=== PATIENT | female | born 1985 | race Caucasian/White ===

== ENCOUNTER 2019-08-24 09:36 | Outpatient (CLI) | payer OTHER, SELFPAY ==
[2019-08-24 10:25] LABS: Hematocrit 33.7 % (37.0-47.0); Hemoglobin 10.7 g/dL (12.0-15.0); Mean Corpuscular HGB Conc 31.8 g/dl (32-36); Mean Corpuscular Volume 88.2 fl (80-100); Mean Platelet Volume 9.2 fl (7.4-10.4); Platelet Count Result 289 k/mm3 (150-375); Red Blood Count 3.82 M/mm3 (4.2-5.4); Red Cell Distribution Width 15.5 % (11.5-14.5)
[2019-08-25 07:43] LABS: Rapid Plasma Reagin Non-Reactive (NonReactive)
== END 2019-08-24 09:37 | disposition home or self-care (01) ==
PROVIDERS: Visit Provider Obstetrics & Gynecology Gynecology
DX: Z01.818 Encounter for other preprocedural examination (principal)
CPT/HCPCS: 36415; 85027; 86592; 86850; 86900; 86901

== ENCOUNTER 2019-08-25 05:28 | Inpatient (IN) | payer OTHER, SELFPAY ==
--- NOTE | 2019-08-02 12:47 | PC.NURSE ---
VERIFIED WITH OR SCHEDULE AND PATIENT--C/S ON 08/25/19 AT 0730 PATIENT GIVEN REQUISITION FOR LAB DRAW ON 08/24/19
[2019-08-25] VITALS (50 sets, daily range): BP systolic 76–139; BP diastolic 37–86; PULSE 57–177; RESP 12–21; TEMP 36.1–37.3; O2SAT 96–100; BMI 43.9
[2019-08-25] MEDS: LACTATED RINGERS 1,000 ML 999 ML IV CONT (06:21)
[2019-08-25] MEDS: ceFAZolin 2 GM/D5W 50 ML 2 GM/50 ML BAG IVPB (06:22)
--- NOTE | 2019-08-25 06:33 | LDADM ---
This patient, Cherry Adair, was admitted to Labor/Delivery/Recovery 120 on 08/25/19 at 05:28. Plans for labor, pain management and were discussed with patient. Patient/family oriented to hospital policies and general routines including ID bracelet, bed and alarms, visiting hours, pain management, procedures, bathroom and other care routines, personal items, smoking policy, room service/diet and guest tray routines, security routines, and visiting hours. Patient/Family are encouraged to report perceived risks to care and to ask questions if they do not understand what they are told or what they should do. See OBIX for further documentation.
--- NOTE | 2019-08-25 06:54 | WPDANESEPPF ---
Anes - Initial Pre Proc Eval Procedure: Operation Date: 08/25/19 07:30 Proposed Procedures p Repeat Section - Julieth Leal MD Date/Time: 08/25/19 06:54 Surgeon: Julieth Leal MD Pre Op Diagnosis: PREIN Patient Data Age: 34 Gender: F Height: 5 ft Weight: 102 kg Allergies Allergy/AdvReac Type Severity Reaction Status Date / Time No Known Allergies Allergy Verified 08/02/19 12:26 Home Medications Medication Instructions Recorded Confirmed Type PNV cmb#95-ferrous fumarate-FA 1 tablet PO DAILY 05/30/19 08/25/19 History [] aspirin [Adult Low Dose Aspirin] 81 mg PO DAILY 05/30/19 08/25/19 History afhajdurnw-aluataqesokgj-svrm 1 cap PO Q4-6H PRN 05/30/19 08/25/19 History [Fioricet] cetirizine [Zyrtec] 10 mg PO DAILY 05/30/19 08/25/19 History cholecalciferol (vitamin D3) 2,000 unit PO DAILY 05/30/19 08/25/19 History [Vitamin D3] nifedipine 30 mg PO DAILY 05/30/19 08/25/19 History omeprazole 20 mg PO BID 05/30/19 08/25/19 History Patient hx anesthesia problems: post op nausea/vomiting Family hx anesthesia problems: none PMFSH Past Medical History Medical History GERD (gastroesophageal reflux disease) Hx of migraines Hypertension Family History Family History Grandparent Family history of cardiovascular disease Diabetes mellitus Hypertension Cerebrovascular accident Cancer Father Family history of gastrointestinal disorder Grandparent Cerebrovascular accident Mother Family history of cardiovascular disease Social History Social History Smoking status: Never smoker Alcohol intake: current Substance use: never Gender identity (if verbalized by the patient): Female Spiritual care concerns: No Anes - Eval Final PreProcedure Day of Procedure 08/25/19 06:54 Patient weight: morbidly obese Heart: regular rate and rhythm Lungs: clear to auscultation Airway: Mallampati scale class II Neurological: alert and oriented Last oral intake: >/= 8 hours ASA classification: III Emergent: no Anesthetic plan: proceed Anesthesia type and monitoring: regional spinal and standard monitoring Informed Consent: The patient's anesthetic plan and its attendant risks and benefits were discussed with the patient/family/POA. Questions were solicited and answers provided to the satisfaction of the patient/family/POA.
--- NOTE | 2019-08-25 07:24 | PM.IMHP ---
H&P: HPI History of Present Illness Chief complaint: PREIN Narrative: Cherry Adair is a 34 year old female at 39 wks here for repeat LTCS. Patient complicated by CHTN that has been stable throughout . labs: O+; RPR-; HBSAg-; HIV-; GBS-. [facility] Past Medical History Medical History (Updated 08/25/19 @ 07:28 by Julieth Leal MD) GERD (gastroesophageal reflux disease) Hx of migraines Hypertension [place] of neck 2017 Surgical History Surgical History (Updated 08/25/19 @ 07:28 by Julieth Leal MD) Previous delivery, antepartum condition or complication S/P laparoscopic cholecystectomy S/P tonsillectomy Family History Family History Grandparent Family history of cardiovascular disease Diabetes mellitus Hypertension Cerebrovascular accident Cancer Father Family history of gastrointestinal disorder Grandparent Cerebrovascular accident Mother Family history of cardiovascular disease Social History Social History Smoking status: Never smoker Alcohol intake: current Substance use: never Gender identity (if verbalized by the patient): Female Spiritual care concerns: No Meds Home Medications and Allergies Home Medications Medication Instructions Recorded Confirmed Type PNV cmb#95-ferrous fumarate-FA 1 tablet PO DAILY 05/30/19 08/25/19 History [] aspirin [Adult Low Dose Aspirin] 81 mg PO DAILY 05/30/19 08/25/19 History vzeojwvodb-yqjzrzbvtgyzq-gxbt 1 cap PO Q4-6H PRN 05/30/19 08/25/19 History [Fioricet] cetirizine [Zyrtec] 10 mg PO DAILY 05/30/19 08/25/19 History cholecalciferol (vitamin D3) 2,000 unit PO DAILY 05/30/19 08/25/19 History [Vitamin D3] nifedipine 30 mg PO DAILY 05/30/19 08/25/19 History omeprazole 20 mg PO BID 05/30/19 08/25/19 History Allergies Allergy/AdvReac Type Severity Reaction Status Date / Time No Known Allergies Allergy Verified 08/02/19 12:26 Exam Const: General: healthy appearing and alert Orientation/consciousness: patient oriented x3 Resp: Effort & Inspection: normal respiratory effort Auscultation: clear to auscultation bilaterally Cardio: Rate: regular rate Rhythm: regular rhythm GI: GI Palp: Yes Soft to palpation, No Tenderness to palpation present (GI) and No Palpable mass present : External Female Exam: normal external appearance Speculum Exam - Vagina: normal appearance of the vagina and normal vaginal discharge Speculum Exam - Cervix: normal appearance of the cervix Bimanual exam- vagina & uterus: uterine size normal and consistency normal Bimanual Exam- Adnexa, other: normal adnexae and No adnexal tenderness Neuro: General: patient oriented x3 Assessment and Plan Assessment and plan (1) Previous delivery, antepartum condition or complication: Code(s): O34.219 - Maternal care for unspecified type scar from previous delivery Status: Acute Assessment and Plan: Plan repeat csection (2) 39 weeks gestation of : Code(s): Z3A.39 - 39 weeks gestation of Status: Acute (3) Hypertension: Code(s): I10 - Essential (primary) hypertension Status: Acute
--- NOTE | 2019-08-25 08:12 | PM.OP ---
Procedure Note - Brief Procedure Note - Brief Date of procedure: 08/25/19 Pre-op diagnosis: PREIN IUP 39 wks; prior csection; transverse lie; CHTN Post-op diagnosis: other (double footling breech not transverse) Procedure performed: repeat LTCS Anesthesia: spinal Surgeon: Julieth Leal MD Estimated blood loss (mL): 155 Drains: Yes (minor) Packing: No Pathology: yes (placenta) Complications: No immediate complications Condition: stable Disposition: PACU Findings: female infant in double footling breech presentation; nuchal cord tight x 2; meconium stained fluid; normal appearing tubes, ovaries, and uterus; dense band of scar tissue from anterior abdominal wall to omentum, from bladder flap to upper mid uterus; from right tube mid portion to anterior abdominal wall Patient states she has not had pelvic pain since last delivery
--- NOTE | 2019-08-25 08:15 | PM.OBDSVD ---
DS: Diagnosis Admitting Diagnosis Admitting Diagnosis: Maternal care for unspecified type scar from previous delivery Discharge Diagnosis (1) delivery delivered: Code(s): O82 - Encounter for delivery without indication Status: Acute (2) 39 weeks gestation of : Code(s): Z3A.39 - 39 weeks gestation of Status: Acute (3) Previous delivery, antepartum condition or complication: Code(s): O34.219 - Maternal care for unspecified type scar from previous delivery Status: Acute (4) Hypertension: Code(s): I10 - Essential (primary) hypertension Status: Acute OB - DS: Summary OB Procedures : NST and Ultrasound OB Procedures Intrapartum: low cervical, transverse OB Procedures: : None Peripartum Data Infant Delivery Method: Section Procedures: Procedures Operation Date: 08/25/19 07:30 <No data on this case meets the specified criteria> complications: none Status at Discharge Functional status at discharge: independent ambulation Overall status at discharge: patient is progressing back to baseline Time Spent with Patient Time attestation: Total time spent providing and/or coordinating discharge services: Discharge Plan Discharge Attending physician on discharge: Julieth Leal Consulting providers: Christopher Leo Discharging Clinician: Nellie Tenorio Anticipated Discharge Date/Time: 08/28/19 08:17 Patient Disposition: Home, Self-Care Activity: may shower, may drive after 2 weeks and pelvic rest Diet: regular Wound Care Instructions: incision open to air Discharge Instructions: Education: Mom and Baby Guide Given to: Mother Follow-Up: Call your delivering provider's office for an appointment to be seen in: 1 Week for incision check and then for 6 week check up Mom and baby should come to the [facility] for the follow-up appointment. Appointment Date/Time: August 29, 2019 at 10:00 am What to expect at your follow-up visit: Blood Pressure Check Physical Assessment Call [phone] if you are unable to keep your appointment time. BREAST CARE: 1. Wear a snug supportive bra. 2. For engorgement discomfort: Breast Feeding: A. Apply warm moist washcloths B. Express milk as needed to relieve engorgement C. Wear loose clothing 3. For sore nipples: A. Identify correct latch-on B. Apply warm moist washcloths before and after nursing C. Air dry nipples after nursing D. May apply Lansinoh cream to nipples ABDOMINAL INCISION: (if applicable) 1. Allow incision to air dry 2. Do NOT use lotions for powders on your incision 3. When showering, allow soap and water to run over the incision, but do not wash incision PERINEAL CARE: 1. Until bleeding stops, use your trisha bottle after urinating 2. Change your pad frequently throughout the day 3. You may take sitz baths several times a day (fill your bathtub with warm water and soak for 20 minutes.) Do NOT bathe in the water 4. No tub baths until seen by your physician - You may shower ACTIVITY: 1. Rest as much as possible. 2. Do not exercise or lift anything heavier than your baby (such as laundry or other children.) 3. Avoid stairs or driving as much as possible. 4. Do not put anything into the vagina. No douching, tampons, or sexual activity until seen by physician. NOTIFY PHYSICIAN IF YOU HAVE ANY QUESTIONS OR IF ANY OF THE FOLLOWING SYMPTOMS OCCUR: 1. If your incision becomes red, swollen, or more painful than what you have experienced in the hospital. 2. If your vaginal bleeding becomes foul smelling. 3. If your vaginal bleeding becomes more heavy than a period or if your bleeding changes from pink to bright red. However, you may pass an occasional walnut-sized clot
--- NOTE | 2019-08-25 10:24 | OBPPTRN ---
Patient transferred to post room # 282 via ( stretcher ). Support person present. Oriented to unit, room, information board, rooming in, admission packet and security measures. Patient verbalizes understanding.
--- NOTE | 2019-08-25 12:15 | PC.NURSE ---
Mother called out is showing feeding cues. Reviewed infant feeding cues, frequencies, duration of feedings, feeding elimination flow sheet, and signs of adequate intake. Demonstrated stimulation techniques to wake infant for feeding. Assisted with to breast. Reviewed positioning/alignment in cross cradle, holding breast in U hold and guided asymmetrical latch on. Discussed rational for each. was able to latch correctly. Infant nursed eagerly, with steady draws and frequent swallowing noted. Reviewed signs of a correct latch, effective nursing and suck swallow ratio. Infant was able to maintain latch without discomfort to mother. Nipple care reviewed. Suggested to stimulate during feeding to keep awake and nursing effectively for increased intake and maintaining deep latch. Demonstrated how to adjust latch more deeply while feeding. Instructed mother to call out for RN assistance if she is unable to latch infant for feeding or she has discomfort with nursing. Instructed feeding should be initiated three hours from start of last feeding or if feeding cues are noted before. Mother voiced understanding of information shared.
[2019-08-25] MEDS: LORATADINE 10 MG TABLET PO (12:44)
[2019-08-25] MEDS: KETOROLAC 30 MG/ML VIAL (*BKC) IV PUSH ×2 (12:44→17:32)
[2019-08-25] MEDS: SIMETHICONE 80 MG TAB.CHEW PO ×2 (12:44→17:32)
[2019-08-25] MEDS: NALBUPHINE HCL 10 MG/ML AMPUL 2 MG IV PUSH ×2 (12:45→17:34)
--- NOTE | 2019-08-25 13:40 | OP_ITS ---
DATE OF PROCEDURE: 08/25/2019 PREOPERATIVE DIAGNOSES: 1. Intrauterine at 39 weeks. 2. Previous section. 3. Transverse position. 4. Chronic hypertension. POSTOPERATIVE DIAGNOSES: 1. Intrauterine at 39 weeks. 2. Previous section. 3. Double footling breech. 4. Chronic hypertension. PROCEDURE: Repeat low-transverse section. ANESTHESIA: Spinal. FINDINGS: Female infant, double footling breech presentation with a tight nuchal cord x2 noted. Meconium stained fluid. Normal-appearing tubes, ovaries, and uterus. There are dense bands of adhesions from the anterior abdominal wall to the omentum from the bladder flap to the upper mid uterus and from the right tube in the midportion to the anterior abdominal wall. ESTIMATED BLOOD LOSS: 155 cc. PATHOLOGY: Placenta. DESCRIPTION OF PROCEDURE: The patient was taken to the operating room, placed under anesthesia in the dorsal supine position with a leftward tilt. Once the anesthesia was deemed adequate, she was prepped and draped in the usual sterile fashion. A Pfannenstiel skin incision is made with a scalpel and carried down to the underlying layer of fascia, which was nicked in the midline and extended laterally using Munson scissors. Bleeding vessels in the subcutaneous tissue are cauterized for hemostasis. The [facility] was used to tent the fascia, which was then dissected off using sharp dissection due to adhesions. The peritoneum was entered during this process. The omentum is noted to be densely adherent to the anterior abdominal wall. This is released using sharp dissection as well as Bovie cautery. The peritoneal incision was extended laterally with blunt traction. The bladder was noted to be densely adherent to the upper mid uterus in the midline. The scar tissue was taken down using sharp, blunt, and Bovie cautery dissection. The bladder flap was then created digitally. The bladder blade was placed. The lower uterine segment was incised with a scalpel in a transverse fashion and extended laterally using blunt traction. Membranes were ruptured. Meconium fluid was noted. The had been transverse on last ultrasound but it is now noted to be in the double footling breech position. Both feet are grasped and delivered through the incision to the scapula. The is rotated and the right arm is splinted and delivered. The infant is rotated and the left arm splinted and delivered. The is extended on the abdomen and the head is delivered. The nuchal cord x2 is reduced. The cord is clamped and cut and the handed to the waiting OB nurse. The placenta was removed using manual traction. The uterus is cleared of all clots and debris and is exteriorized. At this time, a dense band of scar tissue is noted from the right tube in the midportion to the anterior abdominal wall. The patient was asked and she states she has not had pelvic pain especially on the right side since her last delivery, the scar tissue was left in place. The uterine incision was closed using 0 Monocryl in a running locked fashion. Same suture was used to imbricate. Good hemostasis was noted. The cul-de-sac is irrigated. The uterus was returned to the abdomen. The gutters were irrigated. The vaginal incision was closed using 0 Vicryl in a running fashion. Subcutaneous tissues were irrigated and made hemostatic using Bovie cautery. Skin was closed using 4-0 Vicryl in a subcuticular fashion. DermaFlex was placed over the incision. The patient was taken to Recovery in stable condition. Sponge, instrument, and needle counts are correct per the OR staff. D I MT: Cristofer
[2019-08-25] MEDS: DEXTROSE 5%/0.45% SOD CHL 1,000 ML 125 ML IV CONT (14:14)
[2019-08-25] MEDS: DOCUSATE SODIUM 100 MG CAPSULE PO ×2 (17:32→19:43)
[2019-08-25] MEDS: LANOLIN (LANSINOH) 7.5 GM CREAM 1 APPLIC TOPICAL (17:36)
[2019-08-26] MEDS: NALBUPHINE HCL 10 MG/ML AMPUL 2 MG IV PUSH (00:09)
[2019-08-26] MEDS: KETOROLAC 30 MG/ML VIAL (*BKC) IV PUSH (00:10)
[2019-08-26 04:25] VITALS: BP 135/73; PULSE 85; RESP 13; TEMP 36.4; O2SAT 98
[2019-08-26 05:07] LABS: Basophils Percent Auto 0.4 % (0.2-1.2); Eosinophils Absolute Auto 0.1 K/mm3 (0-0.3); Eosinophils Percent Auto 1.3 % (0-4.4); Hematocrit 28.8 % (37.0-47.0); Hemoglobin 9.1 g/dL (12.0-15.0); Immature Granulocyte Absolute 0.08 K/mm3 (0.00-0.031); Immature Granulocyte Percent A 0.7 % (0-0.5); Lymphocytes Absolute Auto 2.03 K/mm3 (0.9-3.2); Lymphocytes Percent Auto 18.4 % (18.3-44.2); Mean Corpuscular HGB Conc 31.6 g/dl (32-36); Mean Corpuscular Hemoglobin 28.3 pg (26-34); Mean Corpuscular Volume 89.7 fl (80-100); Mean Platelet Volume 9.2 fl (7.4-10.4); Monocytes Absolute Auto 0.7 K/mm3 (0.1-0.6); Monocytes Percent Auto 6.1 % (2.6-8.5); Neutrophils Absolute Auto 8.1 K/mm3 (1.3-6.7); Neutrophils Percent Auto 73.1 % (45.5-73.1); Platelet Count Result 253 k/mm3 (150-375); Red Blood Count 3.21 M/mm3 (4.2-5.4); Red Cell Distribution Width 15.8 % (11.5-14.5)
--- NOTE | 2019-08-26 07:40 | PC.NURSE ---
Pt introductions made and plan of care discussed per post , pain management, breast feeding, daily care activities. PT verbalized understanding of such care.
[2019-08-26 08:10] VITALS: BP 142/92; PULSE 90; RESP 18; TEMP 36.8; O2SAT 98
[2019-08-26 09:00] VITALS: PULSE 90; RESP 18; O2SAT 98
[2019-08-26] MEDS: PANTOPRAZOLE SOD SESQUIHYDRATE 20 MG TAB PO ×2 (11:56→21:27)
[2019-08-26] MEDS: NIFEdipine 30 MG TAB.ER.24 PO (11:56)
[2019-08-26] MEDS: MULTIVIT/MIN/PREN/FOL AC/IRON TABLET 1 TAB PO (11:57)
[2019-08-26] MEDS: DOCUSATE SODIUM 100 MG CAPSULE PO ×2 (11:57→16:56)
[2019-08-26] MEDS: SIMETHICONE 80 MG TAB.CHEW PO ×2 (11:57→16:57)
[2019-08-26] MEDS: POLYSACCHARIDE IRON COMPLEX 150 MG CAPSULE PO ×2 (11:57→16:57)
[2019-08-26] MEDS: IBUPROFEN 600 MG TABLET PO ×3 (11:57→22:55)
--- NOTE | 2019-08-26 13:20 | PC.NURSE ---
Consult with pt., mother is able to independently latch infant with appropriate positioning/alignment. She reports slight nipple discomfort, is feeding as required and waking to feed if needed. is currently meeting outcomes for weight, output, jaundice and feeding frequencies. Reviewed infant feeding cues, frequencies, duration of feedings, feeding elimination flow sheet, and signs of adequate intake. Mother is feeding as required and waking to feed if needed. is currently meeting outcomes for weight, output, jaundice and feeding frequencies. Mother states she feels confident to continue effective at home. Reviewed transition to breast milk, signs of adequate intake, and engorgement/relief. Instructed to call ICP if intake/output less than required. Reviewed regular medications mother is taking. Information provided per Dina. Reviewed community resources on the [facility] website and in the Mom/Baby guide. Information on outpatient services provided. Mother has no further questions at this time.
[2019-08-26 17:55] VITALS: TEMP 36.8
[2019-08-26 18:45] VITALS: BP 140/60; PULSE 84; RESP 16; TEMP 36.1; O2SAT 100
--- NOTE | 2019-08-26 18:45 | PC.NURSE ---
Patient viewed the discharge video Mother & Baby Care, The First Two Weeks . Patient was given the opportunity and encouraged to ask questions. Patient verbalized understanding of information shared and has been given the mother/baby guide for home reference.
[2019-08-27 00:22] VITALS: BP 117/70; PULSE 90
[2019-08-27] MEDS: MULTIVIT/MIN/PREN/FOL AC/IRON TABLET 1 TAB PO (07:34)
[2019-08-27] MEDS: IBUPROFEN 600 MG TABLET PO (07:34)
[2019-08-27] MEDS: DOCUSATE SODIUM 100 MG CAPSULE PO (07:35)
[2019-08-27] MEDS: PANTOPRAZOLE SOD SESQUIHYDRATE 20 MG TAB PO (07:35)
[2019-08-27] MEDS: POLYSACCHARIDE IRON COMPLEX 150 MG CAPSULE PO (07:35)
[2019-08-27 10:38] VITALS: BP 124/73; PULSE 92; RESP 14; TEMP 36.4
[2019-08-27] MEDS: NIFEdipine 30 MG TAB.ER.24 PO (10:44)
--- NOTE | 2019-08-27 11:48 | PM.OBPNVD ---
OB - PN: Subj Subjective Date/time seen: 08/27/19 11:48 Patient comments: no complaints, pain well controlled, tolerating diet and flatus present [place] baby status: doing well and nursing well feeding status: exclusively breast feeding OB - PN: Obj Data Labs CBC & Chem 7: 08/26/19 04:32 OB - PN A/P Plan day: 2 Plan: routine care and discharge home Comments: BF instructed F/U in 1 week for post op incision checkup Post op instruction provided Time Spent With Patient Time: Total time spent is greater than 50% in coordination of care (as documented) at patient's floor/unit and/or counseling patient: Time with patient: 15 - 25 minutes Review of Systems Constitutional: Constitutional: Reports no additional constitutional complaints Cardiovascular: Cardiovascular: Reports no additional cardiovascular complaints Respiratory: Respiratory: Reports no additional respiratory complaints Gastrointestinal: Gastrointestinal: Reports no additional gastrointestinal complaints Genitourinary: Genitourinary: Reports no additional female genitourinary complaints Exam Const: General: comfortable, no acute distress, alert and awake Resp: Effort & Inspection: normal respiratory effort Cardio: Rate: regular rate GI: Auscultation: normal bowel sounds Other: Fundus firm below umbilicus Incision: C/D/I
--- NOTE | 2019-08-27 11:50 | P.DS_ITS ---
DS: Diagnosis Admitting Diagnosis Admitting Diagnosis: Maternal care for unspecified type scar from previous nicolette chacha delivery OB - DS: Summary OB Procedures : None OB Procedures Intrapartum: OB Procedures: : None Peripartum Data Procedures: Procedures Operation Date: 08/25/19 07:30 Actual Procedures Side Surgeon p Section Julieth Leal MD Time Spent with Patient Time attestation: Total time spent providing and/or coordinating discharge services: Exam Const: General: comfortable, no acute distress, alert and awake Resp: Effort & Inspection: normal respiratory effort Cardio: Rate: regular rate GI: GI Palp: Yes Soft to palpation Auscultation: normal bowel sounds Psych: Appearance: grossly normal Mental Status: mental status grossly normal Affect: normal affect Attitude: cooperative DS: Data Data Completed and Pending Completed studies during hospitalization: Pending at discharge 08/25/19 08:29 Surgical [PTH] Routine Discharge Plan Discharge Attending physician on discharge: Julieth Leal Discharging Clinician: Nellie Tenorio Anticipated Discharge Date/Time: 08/28/19 08:17 Patient Disposition: Home, Self-Care Activity: may shower, may drive after 2 weeks and pelvic rest Diet: regular Wound Care Instructions: incision open to air Patient Instructions: Antibiotic Form Stand Alone Forms: General Discharge Information Follow-up/Referrals: Julieth Leal MD [Physician] - 1 Week Discharge Medications: New hydrocodone-acetaminophen [[place]] 10-325 mg Tablet 1 tab PO Q6-8H PRN (Reason: Pain Rated 7-10) Qty: 20 RF: 0 docusate sodium 100 mg Capsule 100 mg PO BID Qty: 60 RF: 0 polysaccharide iron complex 150 mg iron Capsule 150 mg PO BIDWM Qty: 60 RF: 0 ibuprofen 600 mg Tablet 600 mg PO Q6H PRN (Reason: Cramping) Qty: 60 RF: 0 Continued nifedipine 30 mg Tablet Extended Release 30 mg PO DAILY RF: 0 cholecalciferol (vitamin D3) [Vitamin D3] 2,000 unit Tablet 2,000 unit PO DAILY RF: 0 Zyrtec 10 mg Capsule 10 mg PO DAILY RF: 0 PNV cmb#95-ferrous fumarate-FA [] 28 mg iron- 800 mcg Tablet 1 tablet PO DAILY RF: 0 Discontinued aspirin [Adult Low Dose Aspirin] 81 mg Tablet,Delayed Release (Dr/Ec) 81 mg PO DAILY RF: 0 omeprazole 20 mg Capsule,Delayed Release(Dr/Ec) 20 mg PO BID RF: 0 kpupppmrnj-iftiwjoapwplr-jnbh [Fioricet] 50-300-40 mg Capsule 1 cap PO Q4-6H PRN (Reason: Migraine Headache) RF: 0 Date of admission: 08/25/19 05:28 Primary Care Provider: PHYSICIAN NOT ON STAFF,NONSTAFF Admitting Provider: Julieth Leal Attending physician on admission: Julieth Leal Condition: Stable
[2019-08-29 10:08] VITALS: BP 137/87; PULSE 102; RESP 20; TEMP 36.7
== END 2019-08-27 12:35 | disposition home or self-care (01) | DRG 787 ==
LOC: ANHSURGERY 05:30 → ANHLDR 07:57 → ANHOB2 08-30 10:35
PROVIDERS: Admitting Provider Obstetrics & Gynecology Gynecology; Visit Provider Obstetrics & Gynecology
PROC: 10D00Z1 Extraction of Products of Conception, Low, Open Approach (ICD-10-PCS; CPT 59514; principal; 2019-08-25 07:30)
DX: O34.211 Maternal care for low transverse scar from previous cesarean delivery (principal); O10.92 Unspecified pre-existing hypertension complicating childbirth; Z3A.39 39 weeks gestation of pregnancy; Z37.0 Single live birth; O99.214 Obesity complicating childbirth; E66.01 Morbid (severe) obesity due to excess calories; P02.5 Newborn affected by other compression of umbilical cord; O32.8XX0 Maternal care for other malpresentation of fetus, not applicable or unspecified; O77.0 Labor and delivery complicated by meconium in amniotic fluid; K21.9 Gastro-esophageal reflux disease without esophagitis; O99.619 Diseases of the digestive system complicating pregnancy, unspecified trimester; Z85.89 Personal history of malignant neoplasm of other organs and systems; O99.89 Other specified diseases and conditions complicating pregnancy, childbirth and the puerperium; N73.6 Female pelvic peritoneal adhesions (postinfective)
CPT/HCPCS: 36415; 85025; 88307; A9270; J0131; J0690; J1200; J1885; J2274; J2300; J2405; J2590; J7120

== ENCOUNTER 2019-10-25 19:17 | Emergency (ER) | payer OTHER, SELFPAY ==
--- NOTE | ~2019-10-25 | XR_ITS ---
EXAMINATION: XR ankle RT min 3V EXAM DATE: 10/25/2019 19:43 INDICATION: Initial encounter following injury, with pain of the right ankle. TECHNIQUE: Right ankle frontal, lateral and oblique projections obtained and reviewed. There is no p rior study for comparison. FINDINGS: The right ankle mortise appears intact. There are no acute fractures or dislocations iden tified. There is no subcutaneous gas. The soft tissue is unremarkable. There are no radiopaque fo reign bodies. IMPRESSION: No acute osseous findings. Reviewed, dictated and finalized at location A. IMPRESSION: No acute osseous findings.
[2019-10-25 19:26] VITALS: BP 137/75; PULSE 104; RESP 20; TEMP 36.6; O2SAT 100
--- NOTE | 2019-10-25 19:27 | ED.ABDPAIN ---
HPI - Abdominal Pain General Chief Complaint: Extremity Injury, Lower <SWAPNIL Britt Last Filed: 10/25/19 19:49> Stated Complaint: right ankle injury <SWAPNIL Britt Last Filed: 10/25/19 19:49> Time Seen by Provider: 10/25/19 19:20 <SWAPNIL Britt Last Filed: 10/25/19 19:49> Source: patient <SWAPNIL Britt Last Filed: 10/25/19 19:49> Mode of arrival: ambulatory <SWAPNIL Britt Last Filed: 10/25/19 19:49> Limitations: no limitations <SWAPNIL Britt Last Filed: 10/25/19 19:49> History of Present Illness HPI narrative: Patient is a 34-year-old female who presents to emergency department for evaluation of right ankle injury injured the ankle while ambulating on arrival notes moderate aching pain to the medial aspect of the ankle where she has bruising and swelling with decreased range of motion and strength denies radicular symptoms or paresthesias or other plaints on arrival to emergency department is resting comfortably in the room in no distress <SWAPNIL Britt Last Filed: 10/25/19 19:49> Related Data Home Medications: Home Medications Medication Instructions Recorded [facility]-FA 1 tablet PO DAILY 05/30/19 08/25/19 [] Zyrtec 10 mg PO DAILY 05/30/19 08/25/19 cholecalciferol (vitamin D3) 2,000 unit PO DAILY 05/30/19 08/25/19 [Vitamin D3] nifedipine 30 mg PO DAILY 05/30/19 08/25/19 norethindrone (contraceptive) 0.35 mg PO DAILY 10/25/19 [Norlyda] omeprazole 20 mg PO DAILY 10/25/19 <SWAPNIL Britt Last Filed: 10/25/19 19:49> Allergies/Adverse Reactions: Allergies Allergy/AdvReac Type Severity Reaction Status Date / Time No Known Allergies Allergy Verified 10/25/19 19:26 <SWAPNIL Britt Last Filed: 10/25/19 19:49> Review of Systems Review of Systems: Narrative: CONSTITUTIONAL: Denies fever, chills, or sweats. SKIN: Positive for bruising and swelling MUSCULOSKELETAL: Positive for joint pain NEUROLOGIC: Denies numbness, or weakness. <Dank Roth PA-C - Last Filed: 10/25/19 19:49> PMFSH Past Medical History Medical History: Medical History GERD (gastroesophageal reflux disease) Hx of migraines Hypertension Sar[place] of neck 2017 <Dank Roth PA-C - Last Filed: 10/25/19 19:49> Surgical History Surgical History: Surgical History Previous delivery, antepartum condition or complication S/P laparoscopic cholecystectomy S/P tonsillectomy <Dank Roth PA-C - Last Filed: 10/25/19 19:49> Social History Social History: Social History Smoking status: Never smoker Alcohol intake: current Substance use: never Gender identity (if verbalized by the patient): Female Spiritual care concerns: No <Dank Roth PA-C - Last Filed: 10/25/19 19:49> Exam Narrative: Exam Narrative: GENERAL: Well-appearing, well-nourished, and in no acute distress. HEAD: Normocephalic, atraumatic. EYES: PERRLA and EOMI. ENT: Nares clear, no rhinorrhea or epistaxis. Mucous membranes moist. EXTREMITIES: Bruising swelling and tenderness to the medial aspect of the right ankle joint SKIN: Warm, dry, no rash. NEURO: No focal deficits. Alert and oriented x3. Neurovascularly intact. PSYCH: Normal mood and affect. <Dank Roth PA-C - Last Filed: 10/25/19 19:49> Course Course Emergency Course: Patient aware of case findings treatment plan and diagnosis <Dank Roth PA-C - Last Filed: 10/25/19 19:49> Vital Signs Vital signs: Vital Signs Temperature 97.9 F 10/25/19 19:26 Pulse Rate 104 H 10/25/19 19:26 Respiratory Rate 10/25/19 19:26 Blood Pressure 137/75 10/25/19 19:26 Pulse Oximetry 1
== END 2019-10-25 20:20 | disposition home or self-care (01) ==
PROVIDERS: Emergency Provider Emergency Medicine
DX: S93.401A Sprain of unspecified ligament of right ankle, initial encounter (principal); K21.9 Gastro-esophageal reflux disease without esophagitis; I10 Essential (primary) hypertension; X58.XXXA Exposure to other specified factors, initial encounter
CPT/HCPCS: 73610; 99283